=== PATIENT | female | born 1975 | race Caucasian/White ===

== ENCOUNTER → 2016-12-18 | Outpatient (CLI) | payer OTHER ==
[~2016-12-18] MED LIST: ALPR2TAB2 PO; BUPR200T PO; HYDR-3240 PO; MULTIVITAMIN; OMEGA; POLY17PO5 PO; PROBIOTICS; [UNRECOGNIZED DRUG - OTHER] PO
== END | disposition home or self-care (01) ==
LOC: CFH 09:47
PROVIDERS: ATTEND Family Medicine
DX: Z12.31 Encounter for screening mammogram for malignant neoplasm of breast (principal)
CPT/HCPCS: G0202

== ENCOUNTER 2018-09-15 18:52 | Inpatient (IN) | payer OTHER ==
[~2018-09-15] VITALS: Ht 162.6 cm; Wt 62.0 kg
--- NOTE | 2018-09-15 19:11 | NUR ---
Pt wheeled to room with RN.
--- NOTE | 2018-09-15 19:21 | NUR ---
Dr. Whipple at bedside to evaluate pt.
--- NOTE | 2018-09-15 19:22 | NUR ---
PIV started, labs drawn and sent with [employer].
[2018-09-15 19:30] LABS: BASOPHILS # (AUTO) 0.04 x10^3/uL (0-0.1); BASOPHILS % (AUTO) 1 % (0-1); EOSINOPHILS # (AUTO) 0.06 x10^3/uL (0-0.4); EOSINOPHILS % (AUTO) 1 % (1-7); LYMPHOCYTES # (AUTO) 1.92 x10^3/uL (1-3.4); LYMPHOCYTES % (AUTO) 29 % (22-44); MD NO; MEAN CORPUSCULAR HEMOGLOBIN 32.7 pg (27.0-34.8); MEAN CORPUSCULAR HGB CONC 34.7 g/dL (32.4-35.8); MEAN CORPUSCULAR VOLUME 94.3 fL (80-100); MEAN PLATELET VOLUME 8.6 fL (7.4-10.4); MONOCYTES # (AUTO) 0.32 x10^3/uL (0.2-0.8); MONOCYTES % (AUTO) 5 % (2-9); NEUTROPHILS # (AUTO) 4.27 x10^3/uL (1.8-6.8); NEUTROPHILS % (AUTO) 65 % (42-75); PLATELET COUNT 240 x10^3/uL (130-400); RED BLOOD COUNT 4.46 x10^6/uL (3.82-5.3); RED CELL DISTRIBUTION WIDTH 13.3 % (9.6-15.2)
[2018-09-15] MEDS ORDERED: ONDANSETRON 2MG/ML, 2ML IVPush ONE (19:30)
[2018-09-15] MEDS ORDERED: SODIUM CHLORIDE FLUSH 10ML SYR IVF ONE (19:30)
[2018-09-15] MEDS ORDERED: ONDANSETRON 2MG/ML, 2ML ONE (19:34)
[2018-09-15] MEDS ORDERED: HYDROmorphone 2 MG/ML, 1ML ONE ×2 (19:34→20:51)
[2018-09-15] MEDS: HYDROmorphone 2 MG/ML, 1ML IVPush PRN ×2 (19:39→20:52)
--- NOTE | 2018-09-15 19:39 | NUR ---
Pt medicated per MAR.
[2018-09-15 19:40] LABS: ALANINE AMINOTRANSFERASE 57 U/L (12-78); ALBUMIN 4.5 g/dL (3.4-5.0); ANION GAP 9 mmol/L (5-15); CALCIUM 9.1 mg/dL (8.5-10.1); CHLORIDE 107 mmol/L (98-107)
[2018-09-15 19:45] LABS: ALKALINE PHOSPHATASE 76 U/L (45-117); BILIRUBIN,TOTAL 0.9 mg/dL (0.2-1.0); CREATININE 1.29 mg/dL (0.55-1.02)
[2018-09-15] MEDS ORDERED: OMNIPAQUE 350 MG/ML, 100ML BOTTLE ONE (20:42)
--- NOTE | 2018-09-15 20:43 | NUR ---
PT BACK FROM CT. WILL MEDICATED PER EMAR FOR LOW POTASSIUM
[2018-09-15] MEDS ORDERED: POTASSIUM CHLORIDE 20 MEQ TAB.ER.PRT ONE (20:45)
--- NOTE | 2018-09-15 20:59 | NUR ---
Pt ambulated to bathroom, no assistance required. Urine sample cup in hand.
[2018-09-15] MEDS ORDERED: POTASSIUM CHLORIDE 20 MEQ TAB.ER.PRT PO ONE (21:00)
[2018-09-15 21:26] LABS: MICROSCOPIC NOT IND
[2018-09-15 21:28] LABS: CULTURE INDICATED? NO
--- NOTE | 2018-09-15 21:55 | NUR ---
Pt to imaging, with tech, on syed.
[2018-09-15] MEDS ORDERED: SODIUM CHLORIDE 0.9% 1,000 ML IV ONE (21:59)
[2018-09-15] MEDS ORDERED: SODIUM CHLORIDE FLUSH 10ML SYR IVF PRN (22:00)
--- NOTE | 2018-09-15 22:28 | NUR ---
SBAR report given to RNKatelin. Pt in imaging at this time, will advise her of new room assignment upon arrival back to ED.
[2018-09-15] MEDS ORDERED: GASTROGRAFIN 120 ML SOLN PO ONE (22:36)
--- NOTE | 2018-09-15 23:00 | NUR ---
Pt back to room and transferred to floor immediately.
[2018-09-15] MEDS ORDERED: D5%-0.45NACL+KCL 20MEQ 1,000 ML IV SCH (23:23)
[2018-09-15] MEDS ORDERED: ONDANSETRON 2MG/ML, 2ML IVPush PRN (23:30)
[2018-09-15] MEDS ORDERED: HYDROmorphone 2 MG/ML, 1ML IVPush PRN (23:30)
[2018-09-15] MEDS ORDERED: MIDAZOLAM 1 MG/ML, 2ML ONE (23:47)
[2018-09-15] MEDS ORDERED: FENTANYL PF 250 MCG/5ML ONE (23:47)
[2018-09-15] MEDS ORDERED: PHENYLEPHRINE 10 MG/ML ONE (23:54)
[2018-09-15] MEDS ORDERED: EPHEDRINE 50 MG/ML, 1ML ONE (23:54)
[2018-09-16] MEDS ORDERED: OXYMETAZOLINE NASAL SPRAY 0.05%, 15ML ONE (00:18)
[2018-09-16] MEDS ORDERED: HYDROmorphone 2 MG/ML, 1ML IVPush PRN ×2 (00:30→07:00)
[2018-09-16] MEDS ORDERED: FENTANYL PF 100 MCG/2ML IV PRN (00:30)
[2018-09-16] MEDS ORDERED: ONDANSETRON ODT 8 MG PO PRN (00:30)
[2018-09-16] MEDS ORDERED: OXYcodone 5 MG/5 ML ORAL.SOL UDC PO PRN (00:30)
[2018-09-16] MEDS ORDERED: HALOPERIDOL 5 MG/ML IV PRN (00:30)
[2018-09-16] MEDS ORDERED: DIAZEPAM 5 MG/ML, 2ML IVPush PRN (00:30)
[2018-09-16] MEDS ORDERED: ACETAMINOPHEN 325 MG TABLET PO PRN ×2 (00:30→04:30)
[2018-09-16] MEDS ORDERED: ONDANSETRON 2MG/ML, 2ML IV PRN (00:30)
[2018-09-16] MEDS ORDERED: PROMETHAZINE 25 MG/ML, 1ML IV PRN (00:30)
[2018-09-16] MEDS ORDERED: ROCURONIUM 10MG/ML,5ML ONE (00:58)
[2018-09-16] MEDS ORDERED: SUCCINYLCHOLINE 20 MG/ML, 10ML ONE (00:58)
[2018-09-16] MEDS ORDERED: DEXAMETHASONE 4 MG/ML, 1ML ONE (00:58)
[2018-09-16] MEDS ORDERED: NEOSTIGMINE 1 MG/ML, 10ML ONE (00:58)
[2018-09-16] MEDS ORDERED: PROPOFOL 10 MG/ML, 20ML ONE (00:58)
[2018-09-16] MEDS ORDERED: CEFAZOLIN 1,000 MG ONE (00:58)
[2018-09-16] MEDS ORDERED: ONDANSETRON 2MG/ML, 2ML ONE (00:58)
[2018-09-16] MEDS ORDERED: GLYCOPYRROLATE 0.2MG/1ML, 5ML ONE (00:58)
[2018-09-16] MEDS ORDERED: MEPERIDINE/PF 50 MG/ML ONE (01:25)
[2018-09-16] MEDS: MEPERIDINE/PF 25MG/0.5ML IVPush PRN ×2 (01:30→01:45)
[2018-09-16 02:52] VITALS: BP 121/85
[2018-09-16 03:13] LABS: BASOPHILS # (AUTO) 0.02 x10^3/uL (0-0.1); BASOPHILS % (AUTO) 0 % (0-1); EOSINOPHILS # (AUTO) 0.08 x10^3/uL (0-0.4); EOSINOPHILS % (AUTO) 1 % (1-7); LYMPHOCYTES # (AUTO) 0.44 x10^3/uL (1-3.4); LYMPHOCYTES % (AUTO) 5 % (22-44); MD NO; MEAN CORPUSCULAR HEMOGLOBIN 32.6 pg (27.0-34.8); MEAN CORPUSCULAR HGB CONC 34.6 g/dL (32.4-35.8); MEAN CORPUSCULAR VOLUME 94.2 fL (80-100); MEAN PLATELET VOLUME 8.8 fL (7.4-10.4); MONOCYTES # (AUTO) 0.12 x10^3/uL (0.2-0.8); MONOCYTES % (AUTO) 1 % (2-9); NEUTROPHILS # (AUTO) 8.92 x10^3/uL (1.8-6.8); NEUTROPHILS % (AUTO) 93 % (42-75); PLATELET COUNT 220 x10^3/uL (130-400); RED BLOOD COUNT 4.21 x10^6/uL (3.82-5.3); RED CELL DISTRIBUTION WIDTH 13.5 % (9.6-15.2)
[2018-09-16 03:32] LABS: ALKALINE PHOSPHATASE 115 U/L (45-117); BILIRUBIN,TOTAL 0.6 mg/dL (0.2-1.0)
[2018-09-16 03:36] LABS: ALANINE AMINOTRANSFERASE 134 U/L (12-78); ALBUMIN 3.8 g/dL (3.4-5.0); ANION GAP 6 mmol/L (5-15); CALCIUM 8.1 mg/dL (8.5-10.1); CHLORIDE 110 mmol/L (98-107)
[2018-09-16] MEDS ORDERED: ACETAMINOPHEN 650 MG SUPP PR PRN (04:30)
[2018-09-16] MEDS ORDERED: SODIUM CHLORIDE 0.9%, 500ML IV PRN (04:30)
[2018-09-16] MEDS ORDERED: DIPHENHYDRAMINE 25 MG CAPSULE PO PRN (04:30)
[2018-09-16] MEDS ORDERED: AAA-ALL IV'S IN NORMAL SALINE IV PRN (04:30)
[2018-09-16] MEDS ORDERED: ATENOLOL 25 MG TABLET PO SCH (06:00)
[2018-09-16] MEDS: D5%-LACTATED RINGERS 1,000 ML IV SCH ×3 (06:23→21:46)
[2018-09-16 07:04] VITALS: BP 125/90
[2018-09-16] MEDS: DIPHENHYDRAMINE 50 MG/ML, 1ML IV PRN (07:28)
[2018-09-16] MEDS ORDERED: hydrALAzine 20 MG/ML, 1ML IV PRN (08:00)
[2018-09-16] MEDS ORDERED: RAMIPRIL 2.5 MG CAPSULE PO SCH (09:00)
[2018-09-16] MEDS ORDERED: GABAPENTIN 300 MG CAPSULE PO SCH (09:00)
[2018-09-16] MEDS: FAMOTIDINE 20 MG/2 ML IVPush SCH ×2 (09:40→21:45)
[2018-09-16] MEDS: KETOROLAC 30 MG/1 ML IV PRN ×3 (09:40→21:45)
[2018-09-16] MEDS: ENOXAPARIN 40 MG/0.4 ML SQ SCH (09:40)
[2018-09-16] MEDS: HYDROcodone/APAP 5/325 TABLET PO PRN ×2 (11:12→16:13)
[2018-09-16] MEDS: CEFOTETAN PMX 1GM/50ML 50 ML IVPB SCH (12:29)
[2018-09-16 13:40] VITALS: BP 110/74
[2018-09-16 19:40] VITALS: BP 115/75
[2018-09-16] MEDS: ONDANSETRON 2MG/ML, 2ML IV PRN (21:45)
[2018-09-17] MEDS: HYDROcodone/APAP 5/325 TABLET PO PRN ×3 (00:41→23:52)
[2018-09-17] MEDS: DIPHENHYDRAMINE 50 MG/ML, 1ML IV PRN ×2 (00:41→23:52)
[2018-09-17] MEDS: CEFOTETAN PMX 1GM/50ML 50 ML IVPB SCH (00:42)
[2018-09-17 01:59] VITALS: BP 114/84
[2018-09-17] MEDS: ONDANSETRON 2MG/ML, 2ML IV PRN ×3 (04:36→18:45)
[2018-09-17] MEDS: KETOROLAC 30 MG/1 ML IV PRN ×3 (04:37→18:46)
[2018-09-17] MEDS: ACETAMINOPHEN 325 MG TABLET PO PRN ×4 (04:37→23:52)
[2018-09-17] MEDS: D5%-LACTATED RINGERS 1,000 ML IV SCH (04:41)
[2018-09-17 07:33] VITALS: BP 110/73
[2018-09-17] MEDS: ENOXAPARIN 40 MG/0.4 ML SQ SCH (08:24)
[2018-09-17] MEDS: FAMOTIDINE 20 MG/2 ML IVPush SCH ×2 (08:24→23:51)
[2018-09-17 08:59] LABS: BASOPHILS # (AUTO) 0.03 x10^3/uL (0-0.1); BASOPHILS % (AUTO) 0 % (0-1); EOSINOPHILS # (AUTO) 0.01 x10^3/uL (0-0.4); EOSINOPHILS % (AUTO) 0 % (1-7); LYMPHOCYTES % (AUTO) 15 % (22-44); MD NO; MEAN CORPUSCULAR HGB CONC 33.5 g/dL (32.4-35.8); MEAN CORPUSCULAR VOLUME 95.5 fL (80-100); MEAN PLATELET VOLUME 8.6 fL (7.4-10.4); MONOCYTES # (AUTO) 0.41 x10^3/uL (0.2-0.8); MONOCYTES % (AUTO) 4 % (2-9); NEUTROPHILS # (AUTO) 7.33 x10^3/uL (1.8-6.8); NEUTROPHILS % (AUTO) 80 % (42-75); PLATELET COUNT 193 x10^3/uL (130-400); RED BLOOD COUNT 3.46 x10^6/uL (3.82-5.3); RED CELL DISTRIBUTION WIDTH 13.7 % (9.6-15.2)
[2018-09-17] MEDS: BUPROPION SR 150 MG TABLET HOMEMEDPO SCH (09:00)
[2018-09-17] MEDS: FLUOXETINE HCL 20 MG CAPSULE HOMEMEDPO SCH (09:00)
[2018-09-17 09:07] LABS: ALANINE AMINOTRANSFERASE 85 U/L (12-78); ALBUMIN 2.9 g/dL (3.4-5.0); ANION GAP 5 mmol/L (5-15); CALCIUM 8.4 mg/dL (8.5-10.1); CHLORIDE 116 mmol/L (98-107); CREATININE 0.74 mg/dL (0.55-1.02)
[2018-09-17 09:09] LABS: ALKALINE PHOSPHATASE 73 U/L (45-117); BILIRUBIN,TOTAL 0.6 mg/dL (0.2-1.0); TOTAL PROTEIN 5.9 g/dL (6.4-8.2)
[2018-09-17] MEDS ORDERED: DEXTROSE 5% 500 ML IV SCH (11:30)
[2018-09-17 12:09] VITALS: BP 121/80
[2018-09-17 14:41] LABS: ANION GAP 4 mmol/L (5-15); CHLORIDE 114 mmol/L (98-107); CREATININE 0.82 mg/dL (0.55-1.02)
[2018-09-17] MEDS: SODIUM CHLORIDE 0.45% 1,000 ML IV SCH ×2 (14:49→23:54)
[2018-09-17] MEDS ORDERED: POTASSIUM CHLORIDE 20 MEQ TAB.ER.PRT PO ONE ×2 (18:30→22:30)
[2018-09-17 19:30] LABS: CLOSTRIDIUM DIFFICILE ANTIGEN NEGATIVE; CLOSTRIDIUM DIFFICILE TOXIN NEGATIVE (Negative)
[2018-09-17 19:34] VITALS: BP 113/81
[2018-09-18 03:59] VITALS: BP 112/68
[2018-09-18] MEDS: ONDANSETRON 2MG/ML, 2ML IV PRN ×3 (04:19→15:47)
[2018-09-18] MEDS ORDERED: D5%-LACTATED RINGERS 1,000 ML IV SCH (04:30)
[2018-09-18 05:44] LABS: BASOPHILS # (AUTO) 0.03 x10^3/uL (0-0.1); BASOPHILS % (AUTO) 0 % (0-1); EOSINOPHILS # (AUTO) 0.06 x10^3/uL (0-0.4); EOSINOPHILS % (AUTO) 1 % (1-7); LYMPHOCYTES # (AUTO) 1.72 x10^3/uL (1-3.4); LYMPHOCYTES % (AUTO) 22 % (22-44); MD NO; MEAN CORPUSCULAR HEMOGLOBIN 32.9 pg (27.0-34.8); MEAN CORPUSCULAR HGB CONC 34.4 g/dL (32.4-35.8); MEAN CORPUSCULAR VOLUME 95.6 fL (80-100); MEAN PLATELET VOLUME 8.7 fL (7.4-10.4); MONOCYTES # (AUTO) 0.51 x10^3/uL (0.2-0.8); MONOCYTES % (AUTO) 6 % (2-9); NEUTROPHILS % (AUTO) 71 % (42-75); PLATELET COUNT 165 x10^3/uL (130-400); RED BLOOD COUNT 3.31 x10^6/uL (3.82-5.3); RED CELL DISTRIBUTION WIDTH 13.3 % (9.6-15.2)
[2018-09-18 05:57] LABS: CHLORIDE 113 mmol/L (98-107)
[2018-09-18 06:01] LABS: ALBUMIN 2.7 g/dL (3.4-5.0); ANION GAP 4 mmol/L (5-15); CALCIUM 7.9 mg/dL (8.5-10.1); CREATININE 0.66 mg/dL (0.55-1.02)
[2018-09-18 07:14] VITALS: BP 115/77
[2018-09-18] MEDS: ENOXAPARIN 40 MG/0.4 ML SQ SCH (08:00)
[2018-09-18 08:58] LABS: BASOPHILS # (AUTO) 0.03 x10^3/uL (0-0.1); BASOPHILS % (AUTO) 0 % (0-1); EOSINOPHILS # (AUTO) 0.03 x10^3/uL (0-0.4); EOSINOPHILS % (AUTO) 0 % (1-7); LYMPHOCYTES # (AUTO) 1.05 x10^3/uL (1-3.4); LYMPHOCYTES % (AUTO) 13 % (22-44); MD NO; MEAN CORPUSCULAR HEMOGLOBIN 32.3 pg (27.0-34.8); MEAN CORPUSCULAR HGB CONC 33.9 g/dL (32.4-35.8); MEAN CORPUSCULAR VOLUME 95.4 fL (80-100); MEAN PLATELET VOLUME 8.8 fL (7.4-10.4); MONOCYTES # (AUTO) 0.37 x10^3/uL (0.2-0.8); MONOCYTES % (AUTO) 5 % (2-9); NEUTROPHILS # (AUTO) 6.42 x10^3/uL (1.8-6.8); NEUTROPHILS % (AUTO) 81 % (42-75); PLATELET COUNT 195 x10^3/uL (130-400); RED BLOOD COUNT 3.44 x10^6/uL (3.82-5.3); RED CELL DISTRIBUTION WIDTH 13.3 % (9.6-15.2)
[2018-09-18] MEDS ORDERED: FLUOXETINE HCL 20 MG CAPSULE HOMEMEDPO SCH (09:00)
[2018-09-18] MEDS: FAMOTIDINE 20 MG/2 ML IVPush SCH ×2 (09:00→19:48)
[2018-09-18] MEDS ORDERED: BUPROPION SR 150 MG TABLET HOMEMEDPO SCH (09:00)
[2018-09-18] MEDS: BUPROPION SR 150 MG TABLET HOMEMEDPO SCH (09:00)
[2018-09-18] MEDS: FLUOXETINE HCL 20 MG CAPSULE HOMEMEDPO SCH (09:00)
[2018-09-18 09:08] LABS: ANION GAP 5 mmol/L (5-15); CALCIUM 8.1 mg/dL (8.5-10.1); CHLORIDE 110 mmol/L (98-107); CREATININE 0.73 mg/dL (0.55-1.02)
[2018-09-18] MEDS: ACETAMINOPHEN 325 MG TABLET PO PRN ×2 (09:12→15:47)
[2018-09-18] MEDS: KETOROLAC 30 MG/1 ML IV PRN ×2 (09:13→15:47)
[2018-09-18 13:57] VITALS: BP 107/74
[2018-09-18 20:36] VITALS: BP 118/79
[2018-09-19 00:55] VITALS: BP 112/70
[2018-09-19] MEDS: ACETAMINOPHEN 325 MG TABLET PO PRN ×2 (01:00→08:47)
[2018-09-19 07:59] VITALS: BP 122/80
[2018-09-19] MEDS: FAMOTIDINE 20 MG/2 ML IVPush SCH (08:11)
[2018-09-19] MEDS: ENOXAPARIN 40 MG/0.4 ML SQ SCH (08:11)
[2018-09-19] MEDS: BUPROPION SR 150 MG TABLET HOMEMEDPO SCH (08:12)
[2018-09-19] MEDS: FLUOXETINE HCL 20 MG CAPSULE HOMEMEDPO SCH (08:12)
[2018-09-19 09:30] LABS: BASOPHILS # (AUTO) 0.01 x10^3/uL (0-0.1); BASOPHILS % (AUTO) 0 % (0-1); EOSINOPHILS # (AUTO) 0.03 x10^3/uL (0-0.4); EOSINOPHILS % (AUTO) 1 % (1-7); LYMPHOCYTES # (AUTO) 0.67 x10^3/uL (1-3.4); LYMPHOCYTES % (AUTO) 12 % (22-44); MD NO; MEAN CORPUSCULAR HEMOGLOBIN 32.5 pg (27.0-34.8); MEAN CORPUSCULAR HGB CONC 34.4 g/dL (32.4-35.8); MEAN CORPUSCULAR VOLUME 94.7 fL (80-100); MEAN PLATELET VOLUME 8.4 fL (7.4-10.4); MONOCYTES # (AUTO) 0.32 x10^3/uL (0.2-0.8); MONOCYTES % (AUTO) 6 % (2-9); NEUTROPHILS # (AUTO) 4.65 x10^3/uL (1.8-6.8); NEUTROPHILS % (AUTO) 82 % (42-75); PLATELET COUNT 197 x10^3/uL (130-400); RED BLOOD COUNT 3.34 x10^6/uL (3.82-5.3); RED CELL DISTRIBUTION WIDTH 12.7 % (9.6-15.2)
[2018-09-19 09:36] LABS: ALBUMIN 2.8 g/dL (3.4-5.0); ANION GAP 7 mmol/L (5-15); CALCIUM 7.8 mg/dL (8.5-10.1); CHLORIDE 110 mmol/L (98-107); CREATININE 0.77 mg/dL (0.55-1.02)
[2018-09-19 11:40] VITALS: BP 116/76
[2018-09-19] MEDS ORDERED: HYDR-3240 PO (11:44)
[2018-09-19] MEDS ORDERED: ONDA4TAB13 PO (11:45)
[2018-09-19] MEDS ORDERED: DOCU-131 PO (11:46)
== END 2018-09-19 12:50 | disposition home or self-care (01) | DRG 329 ==
LOC: ED 19:45 → EDIP 21:59 → SUATTDRO 22:28 → 3NE 23:00 → 4NOR 09-16 02:36 → DCLOUNGE 09-19 12:35
PROVIDERS: ADMIT Internal Medicine; ATTEND Internal Medicine
PROC: 0DTF0ZZ Resection of Right Large Intestine, Open Approach (ICD-10-PCS; principal; 2018-09-16)
DX: K56.2 Volvulus (principal); N17.0 Acute kidney failure with tubular necrosis; E87.0 Hyperosmolality and hypernatremia; D64.9 Anemia, unspecified; E87.6 Hypokalemia; F41.8 Other specified anxiety disorders; R74.0 Nonspecific elevation of levels of transaminase and lactic acid dehydrogenase [LDH]; Z80.41 Family history of malignant neoplasm of ovary; Z90.49 Acquired absence of other specified parts of digestive tract
CPT/HCPCS: 36415; 74280; 99285; J3490; J7121; 74177; 80048; 80053; 81003; 82040; 83690; 83735; 84100; 84443; 84703; 85025; 87324; 88307; 96374; 96375; G0378; J0690; J1100; J1170; J1650; J1885; J2175; J2250; J2405; J2704; J2710; J3010; Q9963; Q9967; C1765; J0330; J1200; J2370; J7060

== ENCOUNTER 2018-10-03 10:30 | Outpatient (CLI) | payer OTHER ==
[~2018-10-03 10:30] MED LIST changes: +DOCU-131 PO; +ONDA4TAB13 PO
== END 2018-10-03 23:59 | disposition home or self-care (01) ==
LOC: WOUND 10:30
PROVIDERS: ATTEND Internal Medicine
DX: T81.31XD Disruption of external operation (surgical) wound, not elsewhere classified, subsequent encounter (principal); K56.2 Volvulus; F41.9 Anxiety disorder, unspecified; F32.9 Major depressive disorder, single episode, unspecified; Z90.49 Acquired absence of other specified parts of digestive tract; Y83.8 Other surgical procedures as the cause of abnormal reaction of the patient, or of later complication, without mention of misadventure at the time of the procedure
CPT/HCPCS: 99213

== ENCOUNTER 2018-10-05 09:01 | Outpatient (CLI) | payer OTHER | END 2018-10-05 23:59 | disposition home or self-care (01) | LOC: WOUND 09:01 | PROVIDERS: ATTEND Internal Medicine | DX: T81.31XD Disruption of external operation (surgical) wound, not elsewhere classified, subsequent encounter (principal); K56.2 Volvulus; F41.9 Anxiety disorder, unspecified; F32.9 Major depressive disorder, single episode, unspecified; Z90.49 Acquired absence of other specified parts of digestive tract; Y83.8 Other surgical procedures as the cause of abnormal reaction of the patient, or of later complication, without mention of misadventure at the time of the procedure | CPT/HCPCS: 99202; 99212 ==

== ENCOUNTER 2018-10-07 09:47 | Outpatient (CLI) | payer OTHER | END 2018-10-07 23:59 | disposition home or self-care (01) | LOC: WOUND 09:47 | PROVIDERS: ATTEND Family Medicine | DX: T81.31XD Disruption of external operation (surgical) wound, not elsewhere classified, subsequent encounter (principal); K56.2 Volvulus; F41.9 Anxiety disorder, unspecified; F32.9 Major depressive disorder, single episode, unspecified; Z90.49 Acquired absence of other specified parts of digestive tract; Y83.8 Other surgical procedures as the cause of abnormal reaction of the patient, or of later complication, without mention of misadventure at the time of the procedure | CPT/HCPCS: 97597 ==

== ENCOUNTER → 2018-10-10 | Outpatient (CLI) | payer OTHER | END | disposition home or self-care (01) | LOC: WOUND 14:24 | PROVIDERS: ATTEND Internal Medicine | DX: T81.31XD Disruption of external operation (surgical) wound, not elsewhere classified, subsequent encounter (principal); K56.2 Volvulus; F41.9 Anxiety disorder, unspecified; F32.9 Major depressive disorder, single episode, unspecified; Z90.49 Acquired absence of other specified parts of digestive tract; Y83.8 Other surgical procedures as the cause of abnormal reaction of the patient, or of later complication, without mention of misadventure at the time of the procedure | CPT/HCPCS: 99213 ==

== ENCOUNTER → 2018-10-14 | Outpatient (CLI) | payer OTHER | END | disposition home or self-care (01) | LOC: WOUND 10:03 | PROVIDERS: ATTEND Family Medicine | DX: T81.31XD Disruption of external operation (surgical) wound, not elsewhere classified, subsequent encounter (principal); K56.2 Volvulus; F41.9 Anxiety disorder, unspecified; F32.9 Major depressive disorder, single episode, unspecified; Z90.49 Acquired absence of other specified parts of digestive tract; Y83.8 Other surgical procedures as the cause of abnormal reaction of the patient, or of later complication, without mention of misadventure at the time of the procedure | CPT/HCPCS: 99214 ==

== ENCOUNTER → 2018-10-17 | Outpatient (CLI) | payer OTHER | END | disposition home or self-care (01) | LOC: WOUND 13:20 | PROVIDERS: ATTEND Internal Medicine | DX: T81.31XD Disruption of external operation (surgical) wound, not elsewhere classified, subsequent encounter (principal); K56.2 Volvulus; F41.9 Anxiety disorder, unspecified; F32.9 Major depressive disorder, single episode, unspecified; Z90.49 Acquired absence of other specified parts of digestive tract; Y83.8 Other surgical procedures as the cause of abnormal reaction of the patient, or of later complication, without mention of misadventure at the time of the procedure | CPT/HCPCS: 99213 ==

== ENCOUNTER → 2018-10-21 | Outpatient (CLI) | payer OTHER | END | disposition home or self-care (01) | LOC: WOUND 10:21 | PROVIDERS: ATTEND Family Medicine | DX: T81.31XD Disruption of external operation (surgical) wound, not elsewhere classified, subsequent encounter (principal); K56.2 Volvulus; F41.9 Anxiety disorder, unspecified; F32.9 Major depressive disorder, single episode, unspecified; Z90.49 Acquired absence of other specified parts of digestive tract; Y83.8 Other surgical procedures as the cause of abnormal reaction of the patient, or of later complication, without mention of misadventure at the time of the procedure | CPT/HCPCS: 99213 ==

== ENCOUNTER → 2018-10-28 | Outpatient (CLI) | payer OTHER | END | disposition home or self-care (01) | LOC: WOUND 10:44 | PROVIDERS: ATTEND Family Medicine | DX: T81.31XD Disruption of external operation (surgical) wound, not elsewhere classified, subsequent encounter (principal); K56.2 Volvulus; F41.8 Other specified anxiety disorders; F32.9 Major depressive disorder, single episode, unspecified; Z90.49 Acquired absence of other specified parts of digestive tract; Y83.8 Other surgical procedures as the cause of abnormal reaction of the patient, or of later complication, without mention of misadventure at the time of the procedure | CPT/HCPCS: 99212 ==

== ENCOUNTER → 2020-12-11 | Outpatient (CLI) | payer OTHER ==
[~2020-12-11] MED LIST changes: -BUPR200T PO; +BUPR200T3 PO; +HYDR-1067 PO; -HYDR-3240 PO
== END | disposition home or self-care (01) ==
LOC: CFH 09:55
PROVIDERS: ATTEND Obstetrics & Gynecology
DX: N60.01 Solitary cyst of right breast (principal); N63.10 Unspecified lump in the right breast, unspecified quadrant
CPT/HCPCS: 76642; 77065